=== PATIENT | female | born 1960 | race Two or more races ===

== ENCOUNTER 2016-12-26 16:45 | Emergency (ER) | payer OTHER ==
[~2016-12-26] VITALS: Ht 154.9 cm; Wt 77.3 kg
[2016-12-26] MEDS ORDERED: CLON0.5T4 PO (17:01)
[2016-12-26] MEDS ORDERED: QUET50TA PO (17:01)
[2016-12-26] MEDS ORDERED: FLUO-125 PO (17:06)
[2016-12-26] MEDS ORDERED: HYDROCODONE/ACETAMINOPHEN 5-325 MG TABLET PO ONE (18:30)
[2016-12-26 19:40] VITALS: BP 139/96
== END 2016-12-26 19:52 | disposition home or self-care (01) ==
LOC: EMS 16:52
DX: M25.522 Pain in left elbow (principal); F41.9 Anxiety disorder, unspecified; F32.9 Major depressive disorder, single episode, unspecified; F17.210 Nicotine dependence, cigarettes, uncomplicated; Z88.0 Allergy status to penicillin
CPT/HCPCS: 29105; 93005; 99284

== ENCOUNTER 2017-08-19 17:43 | Emergency (ER) | payer OTHER ==
[~2017-08-19] VITALS: Ht 154.9 cm; Wt 81.8 kg
[~2017-08-19 17:43] MED LIST: CLON0.5T4 PO; FLUO-125 PO; QUET50TA PO
[2017-08-19 17:57] VITALS: BP 159/108
[2017-08-19] MEDS ORDERED: FLUO-191 PO (18:02)
[2017-08-19] MEDS ORDERED: QUET100T PO (18:02)
[2017-08-19] MEDS ORDERED: CLON1 PO (18:02)
== END 2017-08-19 21:00 | disposition left against medical advice (07) ==
LOC: EMS 17:44
DX: M25.569 Pain in unspecified knee (principal); Z53.21 Procedure and treatment not carried out due to patient leaving prior to being seen by health care provider

== ENCOUNTER 2017-08-20 21:10 | Emergency (ER) | payer OTHER ==
[~2017-08-20] VITALS: Ht 154.9 cm; Wt 81.8 kg
[~2017-08-20 21:10] MED LIST changes: -CLON0.5T4 PO; +CLON1 PO; -FLUO-125 PO; +FLUO-191 PO; +QUET100T PO; -QUET50TA PO
[2017-08-20] MEDS ORDERED: OxyCODONE HCL/ACETAMINOPHEN 5-325 MG TABLET PO ONE (22:30)
[2017-08-20 22:35] VITALS: BP 145/87
== END 2017-08-20 22:38 | disposition home or self-care (01) ==
LOC: EMS 21:11
DX: M25.562 Pain in left knee (principal); M25.522 Pain in left elbow; F17.210 Nicotine dependence, cigarettes, uncomplicated; Z88.0 Allergy status to penicillin
CPT/HCPCS: 99284

== ENCOUNTER 2017-10-20 08:08 | Emergency (ER) | payer OTHER ==
[~2017-10-20] VITALS: Ht 154.9 cm; Wt 81.8 kg
[2017-10-20 09:46] VITALS: BP 160/115
== END 2017-10-20 09:47 | disposition home or self-care (01) ==
LOC: EMS 08:09
DX: L23.9 Allergic contact dermatitis, unspecified cause (principal); R03.0 Elevated blood-pressure reading, without diagnosis of hypertension; F17.210 Nicotine dependence, cigarettes, uncomplicated; Z88.0 Allergy status to penicillin
CPT/HCPCS: 99283

== ENCOUNTER 2019-12-30 03:47 | Emergency (ER) | payer OTHER ==
[~2019-12-30] VITALS: Ht 154.9 cm; Wt 93.2 kg
[~2019-12-30 03:47] MED LIST changes: -CLON1 PO; +CLON1TAB13 PO
[2019-12-30] MEDS ORDERED: HYDR-1475 PO (04:07)
[2019-12-30] MEDS ORDERED: DIVA125T32 PO (04:07)
[2019-12-30 04:13] VITALS: BP 0/0
[2019-12-30] MEDS ORDERED: IBUPROFEN 800 MG TABLET PO ONE (04:15)
[2019-12-30] MEDS ORDERED: PERTUSS(ACELL),DIPH,TET VAC/PF 0.5 ML VIAL IM ONE (04:15)
[2019-12-30] MEDS ORDERED: ClonazePAM 1 MG TABLET PO ONE (04:15)
== END 2019-12-30 04:46 | disposition home or self-care (01) ==
LOC: EMS 03:47
DX: S51.851A Open bite of right forearm, initial encounter (principal); S51.852A Open bite of left forearm, initial encounter; F41.9 Anxiety disorder, unspecified; F31.9 Bipolar disorder, unspecified; I10 Essential (primary) hypertension; F17.210 Nicotine dependence, cigarettes, uncomplicated; Z90.89 Acquired absence of other organs; Z88.0 Allergy status to penicillin; W55.01XA Bitten by cat, initial encounter; Y93.89 Activity, other specified; Y92.89 Other specified places as the place of occurrence of the external cause; Y99.8 Other external cause status
CPT/HCPCS: 90471; 90715